=== PATIENT | male | born 1970 | race African-American/Black ===

== ENCOUNTER 2019-11-01 01:14 | Emergency (ER) | payer OTHER, SELFPAY ==
--- NOTE | ~2019-11-01 | CT_ITS ---
EXAMINATION: CT abdomen pelvis wo con DATE: 11/01/2019 03:08 INDICATION: Left flank pain TECHNIQUE: Computed tomography (CT) of the abdomen and pelvis was performed without intravenous contr ast. Automated exposure control and iterative reconstruction technique were employed. Exam dose: 109 8.07 mGy-cm total exam DLP. COMPARISON: None. FINDINGS: The lung bases are clear. Normal heart size. No pericardial or pleural effusion. The liver, gallbladder, pancreas, bile and pancreatic ducts and adrenal glands are unremarkable. Status post splenectomy. There are a number of splenules in the upper quadrant. There is a 2 mm nonobstructing upper pole left renal calculus. There is a 3.2 x 4.1 proximal left ureteral calculus. There is mild left hydronephrosis. Normal caliber of the abdominal aorta. No intraperitoneal or retroperitoneal or pelvic mass lesion or adenopathy or ascites. There is moderate moderate prostate enlargement and mild prostate calcification. There is mild diffus e thickening of the urinary bladder wall. Mild colonic diverticulosis; no CT evidence of diverticulitis. No bowel obstruction, bowel wall thick ening, pneumatosis or intraperitoneal free air. There is a supraumbilical up to 13 cm wide, 5.6 cm AP and 7.3 cm vertical dimension ventral abdominal wall hernia containing small bowel. These idiopathic skeletal hyperostosis of the thoracic spine. Spurring at the sacroiliac joints. No s uspicious osteolytic or osteoblastic lesions are noted. IMPRESSION: 3.2 x 4.1 mm proximal left renal calculus with mild left hydronephrosis 2 mm nonobstructing upper pole left renal calculus Mild colonic diverticulosis Ventral 13 x 5.6 x 7.3 cm abdominal wall hernia containing nonobstructed small bowel loops Reviewed, dictated and finalized at [facility] Reviewed, dictated and finalized at [facility]. IMPRESSION: 3.2 x 4.1 mm proximal left renal calculus with mild left hydroneph rosis 2 mm nonobstructing upper pole left renal calculus Mild colonic diverticulosis Ventral 13 x 5.6 x 7.3 cm abdominal wall hernia containing nonobstructed small bowel loops
[2019-11-01 01:24] VITALS: BP 145/93; PULSE 91; RESP 18; TEMP 36.2; O2SAT 100
--- NOTE | 2019-11-01 01:41 | ED.ABDPAIN ---
HPI - Abdominal Pain General Chief Complaint: Abdominal Pain Stated Complaint: left flank pain Time Seen by Provider: 11/01/19 01:40 History of Present Illness HPI narrative: He was getting into bed this evening when he felt a sudden severe pain in the left flank. He then became very hot and light headed. He vomitined once. He thought he may have been dehydrate since he had just gotten back from a lng walk. He currently has mild discomfort in the flank. Otherwise feeling back to normal. He says he had similar pain only once before, at that time his spleen had ruptured. Related Data Allergies Allergy/AdvReac Type Severity Reaction Status Date / Time No Known Allergies Allergy Verified 11/01/19 01:43 Review of Systems Review of Systems: All systems reviewed & are unremarkable except as noted in HPI and below Constitutional: Constitutional: Denies chills and Denies fever(s) Cardiovascular: Cardiovascular: Denies chest pain Respiratory: Respiratory: Denies dyspnea Gastrointestinal: Gastrointestinal: Denies abdominal pain, Denies constipation, Denies diarrhea and Reports vomiting Genitourinary: Genitourinary: Denies hematuria and Denies dysuria Musculoskeletal: Musculoskeletal: Reports back pain Neurologic: Denies numbness and Denies weakness PMFSH Surgical History Surgical History (Updated 11/01/19 @ 04:22 by Francisco Gray MD) H/O splenectomy Social History Social History (Updated 11/01/19 @ 04:22 by Francisco Gray MD) Smoking status: Never smoker Exam Const: General: no acute distress and alert Orientation/consciousness: patient oriented x3 HENMT: Head: normal to inspection Chest: Chest palpation & inspection: normal inspection of the chest and no tenderness Resp: Effort & Inspection: normal respiratory effort Auscultation: clear to auscultation bilaterally Cardio: Rate: regular rate Rhythm: regular rhythm GI: GI Palp: Yes Soft to palpation and No Tenderness to palpation present (GI) : General: Yes no CVA tenderness Skin: General skin exam: normal color Neuro: General: patient oriented x3, moves all extremities, no focal motor deficits and CN's II-XI intact bilaterally Speech: normal speech Gait exam (Neuro): Normal gait present Extrem: General: normal to inspection Course Vital Signs Vital signs: Vital Signs Temperature 36.2 C L 11/01/19 01:24 Pulse Rate 91 11/01/19 01:24 Respiratory Rate 18 11/01/19 01:24 Blood Pressure 145/93 H 11/01/19 01:24 Pulse Oximetry 100 11/01/19 01:24 Temperature 36.2 C L 11/01/19 01:24 Pulse Rate 88 11/01/19 03:58 Respiratory Rate 20 11/01/19 03:58 Blood Pressure 149/94 H 11/01/19 03:58 Pulse Oximetry 100 11/01/19 03:58 MDM - Abdominal Pain MDM Narrative Medical decision making narrative: Based on H&P I suspect that he had pain related to a kidney stone followed by vasovagal near syncope. CT confirms the kidney stone. Pain controlled. I will discharge him with urology follow-up. Medical Records Attestation: I reviewed the patient's medical records. Lab Data Attestation: I reviewed the patient's lab results. Result diagrams: 11/01/19 02:16 11/01/19 02:16 Labs: Lab Results 11/01/19 11/01/19 11/01/19 Range/Units 02:16 02:16 02:42 WBC 11.9 H (4.5-10.0) K/mm3 RBC 4.85 (4.6-6.20) M/mm3 Hgb 15.9 (14.0-18.0) g/dL Hct 47.0 (42.0-52.0) % MCV 96.9 (80-100) fl MCH 32.8 (26-34) pg MCHC 33.8 (32-36) g/dl RDW 13.5 (11.5-14.5) % Plt Count 301 (150-375) k/mm3 MPV 10.6 H (7.4-10.4) fl Immature Gran % (Auto) 0.5 (0-0.5) % Neut % (Auto) 67.5 (45.5-73.1) % Lymph % (Auto) 23.7 (18.3-44.2) % [place] % (Auto) 6.7 (2.6-8.5) % Eos % (Auto) 1.0 (0-4.4) % Baso % (Auto) 0.6 (0.2-1.2) % Lymph # (Auto) 2.82 (0.9-3.2) K/mm3 [place] # (Auto) 0.8 H (0.1-0.6) K/mm3 Eos # (Auto) 0.1 (0-0.3) K/mm3 Baso #
--- NOTE | 2019-11-01 01:54 | ECG_ITS ---
Measurements Intervals [place] Rate: 84 P: 48 MT: 174 QRS: -5 QRSD: 113 T: 0 QT: 345 QTc: 410 Interpretive Statements SINUS RHYTHM WITH SINUS ARRHYTHMIA LEFT VENTRICULAR HYPERTROPHY AND ST-T CHANGE MINIMAL Q WAVES- HIGH LATERAL LEADS BASELINE ARTIFACT- I, II, AVR BORDERLINE ECG Electronically Signed On 11-01-2019 6:44:13 CDT by Jesus Sparrow D.O.
[2019-11-01 02:22] VITALS: BP 137/91; PULSE 85
[2019-11-01 02:23] VITALS: BP 143/94; BP 152/110; PULSE 101; PULSE 106
[2019-11-01 02:29] LABS: Basophils Absolute Auto 0.1 K/mm3 (0.0-0.1); Basophils Percent Auto 0.6 % (0.2-1.2); Eosinophils Absolute Auto 0.1 K/mm3 (0-0.3); Hemoglobin 15.9 g/dL (14.0-18.0); Immature Granulocyte Absolute 0.06 K/mm3 (0.00-0.031); Immature Granulocyte Percent A 0.5 % (0-0.5); Lymphocytes Absolute Auto 2.82 K/mm3 (0.9-3.2); Lymphocytes Percent Auto 23.7 % (18.3-44.2); Mean Corpuscular HGB Conc 33.8 g/dl (32-36); Mean Corpuscular Hemoglobin 32.8 pg (26-34); Mean Corpuscular Volume 96.9 fl (80-100); Mean Platelet Volume 10.6 fl (7.4-10.4); Monocytes Absolute Auto 0.8 K/mm3 (0.1-0.6); Monocytes Percent Auto 6.7 % (2.6-8.5); Neutrophils Percent Auto 67.5 % (45.5-73.1); Platelet Count Result 301 k/mm3 (150-375); Red Blood Count 4.85 M/mm3 (4.6-6.20); Red Cell Distribution Width 13.5 % (11.5-14.5); White Blood Count 11.9 K/mm3 (4.5-10.0)
[2019-11-01 02:36] LABS: Anion Gap 10 mmol/L (8-16); Blood Urea Nitrogen 18 mg/dL (9-20); Calcium 9.2 mg/dL (8.4-10.2); Carbon Dioxide 25 mmol/L (22-30); Chloride 103 mmol/L (98-107); Estimated CRCL calculation 100 ml/min; Estimated Glomerular Filt Rate > 60; Glucose 164 mg/dL (75-110); Potassium 4.1 mmol/L (3.4-5.0); Sodium 138 mmol/L (137-145)
[2019-11-01 03:01] LABS: Add Urine Microscopic? YES; Appearance Urine Clear (Clear); Bilirubin Urine Negative (Negative); Blood Urine 2+ (Negative); Color Urine Yellow (Yellow); Glucose Urine UA 3+ mg/dL (Negative); Ketones Urine Negative (Negative); Leukocyte Esterase Ur Negative LEU/UL (Negative); Mucus Urine Few /lpf; Nitrate Urine Negative (Negative); Protein Urine Negative (Negative); Specific Grav Ur 1.021 (1.001-1.035); Urobilinogen Urine Negative mg/dL (<2.0)
[2019-11-01 03:58] VITALS: BP 149/94; PULSE 88; RESP 20; O2SAT 100
[2019-11-01] MEDS: TAMSULOSIN HCL 0.4 MG CAPSULE PO (03:58)
[2019-11-01 04:19] VITALS: BP 161/88; PULSE 88; RESP 20; O2SAT 100
== END 2019-11-01 04:23 | disposition home or self-care (01) ==
PROVIDERS: Emergency Provider Emergency Medicine; PCP Family Medicine
DX: N13.2 Hydronephrosis with renal and ureteral calculous obstruction (principal)
CPT/HCPCS: 36415; 74176; 80048; 81001; 85025; 93005; 99284; A9270